=== PATIENT | male | born 1950 | race Caucasian/White ===

== ENCOUNTER 2017-09-12 09:55 | Emergency (ER) | payer MEDICARE ==
[~2017-09-12] VITALS: Ht 175.3 cm; Wt 100.0 kg
[2017-09-12 09:58] VITALS: BP 150/69; PULSE 98; RESP 16; TEMP 98.4; O2SAT 96
--- NOTE | 2017-09-12 10:54 | PD ---
HPI Chief Complaint: Bleeding Time Seen by Provider: 10:46 Travel History International Travel<30 days: No Contact w/Intl Traveler<30days: No Traveled to known affect area: No History of Present Illness HPI 67 year old male presents to ED for evaluation of a left anterior leg bleed onset 1 hour prior to arrival. The patient has a small area of varicose vein on the surface of his leg which started bleeding spontaneously this morning, now resolved. He states this has happened to him previously in the same area and he received cauterization for two year ago. He denies any trauma, fall, scratch to the area. He applied pressure to home to area which resolved bleeding, only minimal blood loss. He takes a 81mg ASA daily, no other anticoagulants. Risk Factors:81 mg ASA Modifying Factors:[None] Associated sign and symptoms: Bleeding from left anterior leg PFSH Past Medical History Cardiovascular Problems: Yes Social History Tobacco Use: No Allergies-Medications (Allergen,Severity, Reaction): Uncoded Allergies: CHOLESTROL MEDS (Adverse Reaction, Severe, Hives, 09/12/17) Review of Systems Except as stated in HPI: all other systems reviewed are Neg Physical Exam Narrative GENERAL: Elderly male, well developed, no acute distress. SKIN: Warm and dry. HEAD: Atraumatic. Normocephalic. EYES: Pupils equal and round. No scleral icterus. No injection or drainage. ENT: No nasal bleeding or discharge. Mucous membranes pink and moist. NECK: Trachea midline. No JVD. CARDIOVASCULAR: Regular rate and rhythm. RESPIRATORY: No accessory muscle use. Clear to auscultation. Breath sounds equal bilaterally. GASTROINTESTINAL: Abdomen soft, non-tender, nondistended. Hepatic and splenic margins not palpable. MUSCULOSKELETAL: Left anterior LE with superficial varicose vein with small cut , no active bleeding. NEUROLOGICAL: Awake and alert. No obvious cranial nerve deficits. Motor grossly within normal limits. Five out of 5 muscle strength in the arms and legs. Normal speech. PSYCHIATRIC: Appropriate mood and affect; insight and judgment normal. Data Data Last Documented VS Vital Signs Date Time Temp Pulse Resp B/P (MAP) Pulse Ox O2 Delivery O2 Flow Rate FiO2 09/12/17 09:58 98.4 98 16 150/69 (96) 96 Orders Orders Lidocai-Epi 1%-1:100,000 Inj (Xylocaine- (09/12/17 11:00) Lidocai-Epi 1%-1:100,000 Inj (Xylocaine- (09/12/17 11:00) Ed Discharge Order (09/12/17 11:36) [facility] Medical Decision Making Medical Screen Exam Complete: Yes Emergency Medical Condition: Yes Medical Record Reviewed: Yes Differential Diagnosis Bleeding varicose vein Narrative Course [id number] suture was placed through the varicose vein injury. Please see nurse practitioner note for further information. Wound care instructions given. Follow-up with primary care physician or a vein specialist. Return for worsening bleeding or new issues as needed. The plan was discussed with him he states understanding. Diagnosis Primary Impression: Bleeding from varicose vein Disposition: 01 DISCHARGE HOME Condition: Stable Andria Johnson MD Sep 12, 2017 10:54
[2017-09-12] MEDS ORDERED: LIDOCAINE 1%/EPINEPHrine 1:100,000 SOLN 20 ML VIAL INFIL ONE (11:00)
[2017-09-12] MEDS ORDERED: LIDOCAINE 1%/EPINEPHrine 1:100,000 SOLN 50 ML VIAL ONE (11:00)
--- NOTE | 2017-09-12 11:29 | PD ---
Physical Exam Time Seen by Provider: 11:28 Data Data Last Documented VS Vital Signs Date Time Temp Pulse Resp B/P (MAP) Pulse Ox O2 Delivery O2 Flow Rate FiO2 09/12/17 09:58 98.4 98 16 150/69 (96) 96 Orders Orders Lidocai-Epi 1%-1:100,000 Inj (Xylocaine- (09/12/17 11:00) Lidocai-Epi 1%-1:100,000 Inj (Xylocaine- (09/12/17 11:00) MDM Medical Record Reviewed: Yes Supervised Visit with COLLETTE: No Procedures Procedure Narrative On the left anterior distal lower extremity there is a varicose vein that was bleeding. The area was prepped with Betadine. 1 mL of 1% lidocaine with epinephrine was injected into the site. One [id number] suture was placed using 4-0 Prolene. Leading was stopped. Patient tolerated this well. Condition: Stable Lisette Díaz Sep 12, 2017 11:29
== END 2017-09-12 11:56 | disposition home or self-care (01) ==
LOC: NEPE 09:55
DX: I83.892 Varicose veins of left lower extremity with other complications (principal)
CPT/HCPCS: 12001